=== PATIENT | female | born 1995 | race Caucasian/White ===

== ENCOUNTER 2023-06-21 09:46 | Outpatient (REF) | payer MEDICAID, SELFPAY ==
[2023-06-21 14:49] LABS: MANUAL DIFF FLAG NO
[2023-06-21 14:56] LABS: Basophils Percent Auto 0.6 % (0-2); Eosinophils Percent Auto 0.4 % (0-4); Hematocrit 39.4 % (37.0-47.0); Hemoglobin 12.5 g/dl (12.0-16.0); Imm Gran Abs Auto 0.01 X10*3/uL (0.00-0.03); Imm Gran Pct Auto 0.2 % (0.0-0.4); Lymphocytes Absolute Auto 1.2 X10*3/uL (1.2-4.9); Lymphocytes Percent Auto 24.2 % (20-40); Mean Corpuscular HGB Conc 31.7 g/dl (31.0-35.0); Mean Corpuscular Volume 88.3 fL (80.0-98.0); Mean Platelet Volume 12.7 fL (9.4-12.3); Monocytes Absolute Auto 0.3 X10*3/uL (0.1-1.2); Monocytes Percent Auto 5.4 % (2-11); Neutrophils Absolute Auto 3.4 x10*3/uL (2.0-8.3); Neutrophils Percent Auto 69.2 % (45-73); Platelet Count 134 X10*3/uL (160-400); Red Blood Count 4.46 X10*6/uL (4.20-5.50); Red Cell Distribution Width 16.5 % (11.0-16.0); White Blood Count 4.8 X10*3/uL (4.8-10.8)
[2023-06-21 15:19] LABS: Alanine Aminotransferase 10 U/L (0-31); Albumin Level 4.2 g/dL (3.5-5.0); Alkaline Phosphatase 49 U/L (39-117); Anion Gap 10 (12-20); Aspartate Amino Transferase 17 U/L (5-31); Bilirubin Total 0.8 mg/dL (0.0-1.0); Blood Urea Nitrogen 14 mg/dL (9-16); Calcium 9.2 mg/dL (8.4-10.2); Carbon Dioxide 28 mmol/L (22-29); Chloride 106 mmol/L (96-108); Estimated Glomerular Filt Rate > 60; Glucose Random 64 mg/dL (60-115); Potassium 3.3 mmol/L (3.3-5.1); Sodium 141 mmol/L (135-145); Total Protein 7.1 g/dL (6.5-8.0)
[2023-06-22 04:11] LABS: HIV AB/AG Nonreactive (Nonreactive); HIV Num 1 0.06 S/CO (0.00-0.99)
== END 2023-06-21 09:47 | disposition home or self-care (01) ==
LOC: HO.CHCLDS 09:46
PROVIDERS: Visit Provider Internal Medicine
DX: Z00.00 Encounter for general adult medical examination without abnormal findings (principal); D69.6 Thrombocytopenia, unspecified
CPT/HCPCS: 36415; 80053; 85025; 87389

== ENCOUNTER 2023-06-24 16:15 | Outpatient (REF) | payer MEDICAID, SELFPAY ==
[2023-06-24 18:27] LABS: Appearance Urine Cloudy; Color Urine Yellow; Glucose Urine UA Negative (Negative); Leukocyte Esterase Urine Trace (Negative); Nitrite Urine Negative (Negative); Specific Gravity - Urine 1.025 (1.005-1.025); UMIC TRIGGER UA YES; Urine Blood Trace (Negative); Urine Ketones Negative (Negative); Urine Protein Negative (Neg-Trace)
[2023-06-24 18:29] LABS: Bacteria Urine 2+ (None Seen); Hyaline Casts Urine 0-2 /LPF (0-2); RBC Urine 0-2 /HPF (0-2)
== END 2023-06-24 16:16 | disposition home or self-care (01) ==
LOC: HO.CHCLNP 16:15
PROVIDERS: Visit Provider Registered Nurse
DX: R39.9 Unspecified symptoms and signs involving the genitourinary system (principal)
CPT/HCPCS: 81001; 87086

== ENCOUNTER 2024-09-03 13:52 | Outpatient (REF) | payer MEDICAID, SELFPAY ==
--- OUTSIDE RECORDS SUMMARY | 2024-09-03 15:21 | XMS_ITS | Clinical Summary ---
Author Organization [facility] ity Address [address] [place] [address] Care Team Providers Care Oracle Database Consultant Name Role Phone Unavailable Primary Care Provider Unavailabl e Social History Tobacco Use Types Packs/Day Years Used Date Smoking Tobacco: Never Assessed Comments Unknown Sex and Gender Information Value Date Recorded Sex Assigned at Not on file Legal Sex Female 12:16 PM EST Gender Identity Not on file Sexual Orientation Not on file Plan of Treatment Health Maintenance Due Date Last Done Comments DTaP,Tdap,and Td Vaccines (1 - Tdap) 02/28/2015 Hepatitis B Vaccines (1 of 3 - 19+ 3-dose series) 02/28/2015 Cervical Cancer Screening: P ap Smear 02/28/2017 Depression Screening 05/01/2022 HIV Screening 05/01/2022 Hepatitis C Screening 05/01/2022 Social Influencers of Health Screening 05/01/2022 COVID-19 Vaccine (2023-2 5 season) 2024 Influenza Vaccine (Season Ended) 2025 HIB Vaccines Aged Out No longer eligi ble based on patient's age to complete this topic HPV Vaccines Aged Out No longer eligi ble based on patient's age to complete this topic Hepatitis A Vaccines Aged Out No long er eligible based on patient's age to complete this topic IPV Vaccines Aged Out No longer eligi ble based on patient's age to complete this topic MMR Vaccines Aged Out No longer eligi ble based on patient's age to complete this topic Meningococcal ACWY Vaccine Aged Out N o longer eligible based on patient's age to complete this topic Meningococcal B Vacine Aged Out No lo nger eligible based on patient's age to complete this topic Pneumococcal Vaccine: Pediat rics (0 to 5 Years) and At-Risk Patients (6 to 64 Years) Aged Out No longer eligible b ased on patient's age to complete this topic RSV Immunization Patients Un amber 20 months Aged Out No longer eligible b ased on patient's age to complete this topic Varicella Vaccines Aged Out No longer eligible based on patient's age to complete this topic
--- OUTSIDE RECORDS SUMMARY | 2024-09-03 15:21 | XMS_ITS | Encounter Summary ---
Author Organization [facility] Address [address] [facility] 7 [place] [address] Care Team Providers Care Coal Crusher Operator Name Role Phone Naty Velazquez MD Primary Care Provider [phone] Encounter Details Date Type Department Care Team (Late st Contact Info) Description 09/03/2024 1:15 PM EDT Office Visit [facility] MED & PEDS [address] [place], [place] [phone] Naty Velazquez MD [address] [place] [address] Annual physical exam (Primary Dx); Other iron deficiency anemia; Dietary counseling; Exercise counseling; Underweight Social History Tobacco Use Types Packs/Day Years Used Date Smoking Tobacco: Never Passive Smoke Exposure: Never Smokeless Tobacco: Never Alcohol Use Standard Drinks/Week Comments Defer 0 (1 standard drink = 0.6 oz pur e alcohol) Alcohol Answer Date Recorded Q1: How often do you have a drink containing alc ohol? 2 09/03/2024 Q2: How many drinks containi ng alcohol do you have on a typical day when you are drinking? 0 09/03/2024 Q3: How often do you have six or more drinks on one occasion? 2 09/03/2024 Depression Answer Date Recorded Patient Health Questionnaire-9 Score 10 09/03/2024 Patient Health Questionnaire-9 Score 10 09/03/2024 Last PHQ-9: Questionnaire Data Not on file 0 09/03/2024 Housing Stability Answer Date Recorded What is your housing situation today? I have [facility] [employer] 04/08/[address] you li ve. Do you have problems with any of the following? None of the above 04/08/2023 Food Insecurity Answer Date Recorded Within the past 12 months, y ou worried that your food would run out before you got money to buy more: Never True 04/08/2023 Within the past 12 months,th e food you bought just didn't last and you didn't have enough money to get more: Never True 11/2022 Transportation Answer Date Recorded In the past 12 months, has l ack of transportation kept you from medical appts, meetings, work or from getting things needed for daily living? No 04/08/2023 Utilities Answer Date Recorded In the past 12 months, has t he electric, gas, oil or water company threatened to shut off services in your home? No 04/08/2023 Depression Answer Date Recorded Patient Health Questionnaire-2 Score 0 09/03/2024 Comments Unknown Sex and Gender Information Value Date Recorded Sex Assigned at Female 04/02/2022 10:39 AM EDT Legal Sex Female 10:39 AM EDT Gender Identity Female 04/02/2022 10:39 AM EDT Sexual Orientation Straight 04/02/2022 10 :39 AM EDT documented as of this encounter Last Filed Vital Signs Vital Sign Reading Time Taken Comments Blood Pressure 106/69 09/03/2024 1:32 PM EDT Pulse 78 09/03/2024 1:32 PM EDT Temperature 36.3 ??C (97.4 ??F) 09/03/2024 1:32 PM ED T Respiratory Rate 20 09/03/2024 1:32 PM EDT Oxygen Saturation 98% 09/03/2024 1:32 PM EDT Inhaled Oxygen Concentration - - Weight 44.9 kg (99 lb) 09/03/2024 1:32 PM EDT Height 165.1 cm (5' 5 ) 09/03/2024 1:32 PM EDT Body Mass Index 16.47 09/03/2024 1:32 PM EDT documented in this encounter Progress Notes * Naty Velazquez MD - 09/03/2024 1:15 PM EDT Subjective Patient ID: Beckie Burnette is a 29 y.o. female who presents for No chief complaint on file.. HPI Patient is here for her annual physical exam. Patient is asymptomatic. Patient Active Problem List Diagnosis Iron deficiency anemia Allergic reaction Current Outpatient Medications on File Prior to Visit Medication Sig Dispense Refill ferrous gluconate (Fergon) 324 (38 Fe) MG tablet TAKE 1 TABLET BY MOUTH WITH BREAKFAST (Patient nottaking: Reported on 08/20/2024) 90 tablet 0 omeprazole (PriLOSEC) [address] capsule Take 1 capsule (20 mg) by mouth before breakfast. 90 capsule3 No current facility-administered medications on file prior to visit. No Known Allergies Review of Systems Constitutional: Negative for activity change, appetite change, chills and diaphoresis. HENT: Negative for dental problem, drooling, ear discharge, ear pain and hearing loss. Eyes: Negative for pain, discharge and itching. Respiratory: Negative for cough, choking and chest tightness. Cardiovascular: Negative for chest pain and leg swelling. Gastrointestinal: Negative for blood in stool and diarrhea. Genitourinary: Negative for difficulty urinating, dyspareunia, dysuria, enuresis, flank pain, frequency and genital sores. Musculoskeletal: Negative for arthralgias, gait problem and joint swelling. Skin: Negative for pallor. Neurological: Negative for dizziness, seizures, speech difficulty, light- headedness and numbness. Psychiatric/Behavioral: Negative for behavioral problems, confusion and decreased concentration. Objective BP 106/69 (BP Location: Right arm, Patient Position: Sitting, BP Cuff Size: Adult) Pulse 78 Temp 97.4 ??F (36.3 ??C) (Oral) Resp 20 Ht 5' 5 (1.651 m) Wt 99 lb (44.9 kg) SpO2 98% BMI 16.47 kg/m?? Physical Exam Constitutional: General: She is not in acute distress. Appearance: Normal appearance. She is not ill-appearing, toxic-appearing or diaphoretic. HENT: Head: Normocephalic. Right Ear: Tympanic membrane normal. There is no impacted cerumen. Left Ear: Tympanic membrane normal. There is no impacted cerumen. Nose: Nose normal. No congestion or rhinorrhea. Mouth/Throat: Mouth: Mucous membranes are moist. Eyes: General: No scleral icterus. Right eye: No discharge. Left eye: No discharge. Pupils: Pupils are equal, round, and reactive to light. Cardiovascular: Rate and Rhythm: Normal rate and regular rhythm. Heart sounds: No murmur heard. No friction rub. No gallop. Pulmonary: Effort: Pulmonary effort is normal. No respiratory distress. Breath sounds: No stridor. No wheezing, rhonchi or rales. Chest: Chest wall: No tenderness. Abdominal: General: There is no distension. Palpations: Abdomen is soft. There is no mass. Tenderness: There is no abdominal tenderness. There is no right CVA tenderness or left CVA tenderness. Musculoskeletal: General: Normal range of motion. Cervical back: Normal range of motion. Neurological: General: No focal deficit present. Mental Status: She is alert and oriented to person, place, and time. Psychiatric: Mood and Affect: Mood normal. Assessment/Plan Diagnoses and all orders for this visit: Annual physical exam Comments: Patient is to maintain a healthy and balanced diet Normal cardiopulmonary exam Orders: - CBC auto differential; Future - Comprehensive Metabolic Panel; Future - TSH W/Reflex to FT4; Future - Hepatitis C Antibody with Reflex to HCV, RNA, Quantitative, Real-Time PCR; Future - HIV-1/2 Antigen and Antibodies, Fourth Generation, with Reflexes; Future Other iron deficiency anemia Comments: Labs ordered Patient will be contacted with results Dietary counseling Exercise counseling Underweight Comments: Pt's weight has been stable in the last 2 years. advised to increase her calorie intake To contact the office if needed documented in this encounter Plan of Treatment Upcoming Encounters Date Type Department Care Team (Late st Contact Info) Description 09/09/2024 10:00 AM EDT Office Visit [facility] ADULT DENTAL [address] [place] [address] Sheri Blue DMD 11/18/2024 3:00 PM EDT Office Visit [facility] AD[facility] [address] [place] [address] Susy Aldana Scheduled Orders Name Type Priority Associated Diagnoses Orde r Schedule CBC auto differential Lab Routine Annual physical exam Expected: 09/03/2024 (Approximate), Expires: 09/03/2025 Comprehensive Metabolic Panel Lab Routine Annual physical exam Expected: 09/03/2024 (Approximate), Expires: 09/03/2025 TSH W/Reflex to FT4 Lab Routine Annual physical exam Expected: 09/03/2024 (Approximate), Expires: 09/03/2025 Hepatitis C Antibody with Reflex to HCV, RNA, Quantitative, Real-Time PCR Lab Routine Annual physical exam Expected: 09/03/2024, Expires: 09/03/2025 HIV-1/2 Antigen and Antibodies, Fourth Generation, with Reflexes Lab Routine Annual physical exam Expected: 09/03/2024 (Approximate), Expires: 09/03/2025 documented as of this encounter Visit Diagnoses Diagnosis Annual physical exam- Primary Routine general medical examination at a health care facility Other iron deficiency anemia Dietary counseling Dietary surveillance and counseling Exercise counseling Underweight documented in this encounter Additional Health Concerns Assessment Noted Time PHQ-9 Depression Total Score: 10 025 1:48 PM EDT documented as of this encounter Care Teams Coal Crusher Operator Relationship Specialty Start Date End Date Naty Velazquez MD [address] [place] [address] PCP - General Internal Medicine 01/05/21 documented as of this encounter
--- OUTSIDE RECORDS SUMMARY | 2024-09-03 15:21 | XMS_ITS | Encounter Summary ---
Author Organization [facility] Address [address] [place] [address] 7 [place] [address] Care Team Providers Care Stars Analytical Lead Name Role Phone Naty Velazquez MD Primary Care Provider [phone] Reason for Referral * Cardiac Stress Testing (Routine) - Closed Specialty Diagnoses / Procedures Referred By Contac t Referred To Contact Cardiology Diagnoses Syncope, unspecified syncope type Procedures Holter monitor - 24 hour Naty Velazquez MD [address] [place] [address] Phone: tel: fax: [address] Phone: tel: fax: Referral ID Status Reason Start Date Expiration Date Visits Re quested Visits Authorized [id number] Closed 08/15/2023 08/14/2024 1 1 * Cardiac Stress Testing (Routine) - Closed Specialty Diagnoses / Procedures Referred By Contac t Referred To Contact Cardiology Diagnoses Syncope, unspecified syncope type Procedures Holter monitor - 48 hour Naty Velazquez MD [address] [place] [address] Phone: tel: fax: Referral ID Status Reason Start Date Expiration Date Visits Re quested Visits Authorized [id number] Closed 08/09/2023 08/08/2024 1 1 Encounter Details Date Type Department Care Team ([facility] Contact Info) Description 08/09/2023 Orders Only [facility] MED [facility] PEDS [address] [place] [address] Naty Velazquez MD [address] [place] [address] Syncope, unspecified syncope type (Primary Dx) Social History Tobacco Use Types Packs/Day Years Used Date Smoking Tobacco: Never Smokeless Tobacco: Never Depression Answer Date Recorded Patient Health Questionnaire-9 Score 4 05/17/2022 Housing Stability Answer Date Recorded What is [...] Date Recorded Patient Health Questionnaire-2 Score 0 05/17/2022 Comments Unknown Sex and Gender Information Value Date Recorded Sex Assigned at Female 04/02/2022 10:39 AM EDT Legal Sex Female 10:39 AM EDT Gender Identity Female 04/02/2022 10:39 AM EDT Sexual Orientation Straight 04/02/2022 10 :39 AM EDT documented as of this encounter Plan of Treatment Upcoming Encounters Date Type Department Care Team ([facility] Contact Info) Description 09/09/2024 10:00 AM EDT Office Visit [facility] AD[facility] [address] [place] [address] Sheri Blue DMD 11/18/2024 3:00 PM EDT Office Visit [facility] [address] [place] [address] Susy Aldana Scheduled Orders Name Type Priority Associated Diagnoses Orde r Schedule Holter monitor - 48 hour Cardiac Services Routine Syncope, unspecified syncope type Expected: 08/09/2023 (Approximate), Expires: 08/08/2025 Holter monitor - 24 hour Cardiac Services Routine Syncope, unspecified syncope type Expected: 08/15/2023 (Approximate), Expires: 08/14/2025 documented as of this encounter Visit Diagnoses Diagnosis Syncope, unspecified syncope type- Primary documented in this encounter Additional Health Concerns Assessment Noted Time PHQ-9 Depression Total Score: 4 05/17/20 22 9:42 AM EST documented as of this encounter Care Teams Stars Analytical Lead Relationship Specialty Start Date End Date Naty Velazquez MD [address] [place] [address] PCP - General Internal Medicine 01/05/21 documented as of this encounter
--- OUTSIDE RECORDS SUMMARY | 2024-09-03 15:21 | XMS_ITS | Encounter Summary ---
Author Organization [facility] [facility] Address [address] [facility] [address] [place] [address] Care Team Providers Care Dining Car Server Name Role Phone Naty Velazquez MD Primary Care Provider [phone] Encounter Details Date Type Department Care Team (Late st Contact Info) Description 06/21/2023 Orders Only [facility] [address] [place], [place] [phone] Naty Velazquez MD [address] [place], [place] [phone] Low platelet count (CMS/HCC) (Primary Dx) Social History Tobacco Use Types [...] Description 09/09/2024 10:00 AM EDT Office Visit [facility] ADULT DENT[facility] [address] [place] [address] Sheri Blue DMD 11/18/2024 3:00 PM EDT Office Visit [facility] ADULT D[facility] [address] [place] [address] Susy Aldana Scheduled Orders Name Type Priority Associated Diagnoses Orde r Schedule CBC auto differential Lab Routine Low platelet count (CMS/HCC) Expected: 06/21/2023 (Approximate), Expires: 06/21/2024 documented as of this encounter Procedures Procedure Name Priority Date/Time Associated Diagnosis Comments CULTURE, URINE, ROUTINE Routine 06/24/2023 2:42 PM EST Low platelet count (CMS/HCC) URINALYSIS, COMPLETE Routine 06/24/2023 2:41 PM EST Low platelet count (CMS/HCC) documented in this encounter Results * Culture, Urine, Routine (06/24/2023 2:42 PM EST) Urine Urine specimen obtained by clean catch procedure / Unknown 06/24/2023 2:42 PM EST 06/24/2023 5:45 PM EST Comment:[facility] Narrative [facility] - 06/26/2023 11:45 AM EST Urine Culture Report Result Urine Culture < 10,000 cfu/ml Specimen Source: Urine clean catch us Shanell Ac [facility] MICROBIOLOGY - GENERAL ORD ERABLES Final Result [facility] [address] [place] [phone] * (ABNORMAL) Urinalysis Complete (06/24/2023 2:41 PM EST) Color Urine Yellow [facility] Appearance Urine Cloudy [facility] PH 6.0 5.0 - 9.0 [facility] Glucose Urine UA Negative Negative mg/dL [facility] Urine Blood Trace(A) Negative [facility] Specific [place] - Urine 1.025 1.005 - 1.025 [facility] Urine Protein Negative Neg-Trace mg/dL [facility] Urine Ketones Negative Negative mg/dL [facility] Nitrite Urine Negative Negative [facility] Leukocyte Esterase Urine Trace(A) Negative [facility] RBC Urine 0-2 0 - 2 /HPF [facility] Urine WBC 11-20(A) 0 - 5 /HPF [facility] Urine Squamous Epithelial Cell 11-20 0 - 2 /HPF [facility] Urine Bacteria 2+ None Seen [facility] Hyaline Casts, Urine 0-2 0 - 2 /LPF [facility] 06/24/2023 2:41 PM EST 06/24/2023 6:18 PM EST us Shanell Ac [facility] URINE ORDERABLES Final Res ult [facility] [address] [place] [phone] [phone] documented in this encounter Visit Diagnoses Diagnosis Low platelet count (CMS/HCC)- Primary documented in this encounter Additional Health Concerns Assessment Noted Time PHQ-9 Depression Total Score: 4 05/17/20 22 9:42 AM EST documented as of this encounter Care Teams Dining Car Server Relationship Specialty Start Date End Date Naty Velazquez MD [address] [place] [address] PCP - General Internal Medicine 01/05/21 documented as of this encounter
--- OUTSIDE RECORDS SUMMARY | 2024-09-03 15:21 | XMS_ITS | Clinical Summary ---
Author Organization [employer] Address [address] [facility] [address] [place] [address] Care Team Providers Care Off Track Betting Manager Name Role Phone Naty Velazquez MD Primary Care Provider [phone] Allergies No known active allergies Medications omeprazole (PriLOSEC) [address] richIndyary ns:Gastroesophag eal reflux disease without esophagitis Take 1 capsule (20 mg) by mouth before breakfast. 90 capsule 3 3 Active ferrous gluconate (Fergon) 324 (38 Fe) MG tabletIndication s:Other iron deficiency anemia TAKE 1 TABLET BY MOUTH WITH BREAKFAST 90 tablet 4 Active Additional Information Patient not taking.Reported on 08/20/2024 Active Problems Problem Noted Date Diagnosed Date Allergic reaction 09/20/2022 Assessment & Plan (09/20/2022 10:01 AM EDT): Patient was installing a plastic fence on her yard on 09/16, next morning she woke up with a rash all over her body, without associated shortness of breath, sore throat, fever. Denied new medication/change in soaps, new food. Patient has been taking benadryl with minimal improvement, will provide prednisone x5 days, continue benadryl, in case of worsening or new symptoms as discussed told to visit er Iron deficiency anemia 04/18/2021 Encounters Date Type Department Care Team Description 09/03/2024 1:15 PM EDT Office Visit [facility] [address] [place] [address] Naty Velazquez MD Annual physical exam (Primary Dx); Other iron deficiency anemia; Dietary counseling; Exercise counseling; Underweight 09/03/2024 Travel 08/26/2024 Patient Outreach [facility] [address] [place] [address] Naty Velazquez MD Pre-visit Planning (Pre visit planning LVM ) 08/20/2024 1:00 PM EDT Office Visit [facility] [address] [place] [address] Sheri Blue DMD 08/14/2024 Population Health Risk Score Community Care [facility] ([facility]) Department [address] [place] [address] [phone] Provider, Population Health Generic 07/28/2024 1:00 PM EST Office Visit [facility] [address] [place] [address] Sheri Blue DMD 07/01/2024 1:00 PM EST Office Visit [facility] [address] [place] [address] Sheri Blue DMD 06/16/2024 9:00 AM EST Office Visit [facility] [address] [place] [address] Sheri Blue DMD from Last 3 Months Immunizations Name Administration Dates Next Due Influenza injectable quadriv alent preservative free 04/17/2023 Influenza, seasonal, injecta ble, preservative free 05/17/2022 Pfizer Covid-19 Vaccine 12+ 06/20/2021,,10/15/2020 TD (adult), 2 Lf tetanus tox oid, preservative free, adsorbed 06/20/2023 Social History Tobacco Use Types Packs/Day Years Used Date Smoking Tobacco: Never Passive Smoke Exposure: Never Smokeless Tobacco: Never Tobacco Cessation:Counseling Given: Not Answered Alcohol Use Standard Drinks/Week Comments Defer 0 [...] Orientation Straight 04/02/2022 10 :39 AM EDT Last Filed Vital Signs Vital Sign Reading [...] Mass Index 16.47 09/03/2024 1:32 PM EDT Plan of Treatment Upcoming Encounters Date Type Department Care Team (Late st Contact Info) Description 09/09/2024 10:00 AM EDT Office Visit [facility] [address] [place] [address] Sheri Blue DMD 11/18/2024 3:00 PM EDT Office Visit [facility] [address] [place] [address] Susy Aldana Health Maintenance Due Date Last Done Comments Family Planning (PISQ) 02/28/2011 Hepatitis C Screening 02/28/2014 Hepatitis B Vaccines (1 of 3 - 19+ 3-dose series) 02/28/2015 DTaP/Tdap/Td Vaccines (1 - Tdap) 06/21/2023 06/20/2023 COVID-19 Vaccine (4 - 2023-2 5 season) 2024 06/20/2021, 11/09/2020, 10/15/2020 Influenza Vaccine (#1) 2024 , 05/17/2022 SDOH Screening 06/11/2024 06/11/2023 Pap Smear 07/04/2024 07/04/2021 Dental Oral Exam 11/13/2024 05/14/2024 Dental Prophylaxis 11/13/2024 05/14/2024 Depression Monitoring (PHQ-9) 03/05/2025, 09/03/2024 Dental X-Ray: Bitewings 08/21/2025 08/21/19 25, 05/14/2024 Alcohol/Substance Use Screening 09/03/2025 09/03/2024 Depression Screening 09/03/2025 09/03/2024, 09/03/2024 Tobacco Screening 09/03/2025 09/03/2024 Dental X-Ray: Full Mouth 05/15/2027 05/14/2024 Zoster Vaccines (1 of 2) 02/28/2046 RSV Patients and Patients Aged 60 years or older (1 - 1-dose 75+ series) 02/28/2071 HIV Screening Completed 06/21/2023 HIB Vaccines Aged Out No longer eligi [...] patient's age to complete this topic Meningococcal Vaccine Aged Out No rhina shelby eligible based on patient's age to complete this topic Pneumococcal Vaccine: Pediatrics (0 to 5 Years) and At-Risk Patients (6 to 49) Years) Aged Out No longer eligible b ased on patient's age to complete this topic RSV under 20 months Aged Out No longe r eligible based on patient's age to complete this topic Rotavirus Vaccines Aged Out No longer eligible based on patient's age to complete this topic Procedures Procedure Name Priority Date/Time Associated Diagnosis Comments BITEWING - SINGLE RADIOGRAPHIC IMAGE Routine 08/20/2024 1:00 PM EDT CASE PRESENTATION, DETAILED AND EXTENSIVE TREATMENT PLANNING Routine 08/20/2024 1:00 PM EDT NO CHARGE - REDO PROCEDURE Routine 08/20/2024 1:00 PM EDT 20 O RESIN-BASED COMPOSITE - 1 SURF, POSTERIOR Routine 08/20/2024 1:00 PM EDT CASE PRESENTATION, DETAILED AND EXTENSIVE TREATMENT PLANNING Routine 07/28/2024 1:00 PM EST 31 MO RESIN-BASED COMPOSITE - 2 SURF, POSTERIOR Routine 07/28/2024 1:00 PM EST 28 DO RESIN-BASED COMPOSITE - 2 SURF, POSTERIOR Routine 07/28/2024 1:00 PM EST CASE PRESENTATION, DETAILED AND EXTENSIVE TREATMENT PLANNING Routine 07/01/2024 1:00 PM EST 29 MOD RESIN-BASED COMPOSITE - 3 SURF, POSTERIOR Routine 07/01/2024 1:00 PM EST CASE PRESENTATION, DETAILED AND EXTENSIVE TREATMENT PLANNING Routine 06/16/2024 9:00 AM EST 12 DO RESIN-BASED COMPOSITE - 2 SURF, POSTERIOR Routine 06/16/2024 9:00 AM EST PROPHYLAXIS - ADULT Routine 05/14/2024 1 1:00 AM EST INTRAORAL - COMPLETE SERIES OF RADIOGRAPHIC IMAGES Routine 05/14/2024 11:00 AM EST COMPREHENSIVE ORAL EVALUATION - NEW OR ESTABLISHED PATIENT Routine 05/14/2024 11:00 AM EST HIV 1/2 ANTIGEN/ANTIBODY, FOURTH GENERATION W/RFL Routine 06/21/2023 9:53 AM EST Annual physical exam HM PAP/HPV Routine 07/04/2021 from Last 3 Months or Most Recently Relevant to Health Maintenance Results * HIV-1/2 Antigen and Antibodies, Fourth Generation, with Reflexes (06/21/2023 9:53 AM EST) HIV AB/AG Nonreactive Nonreactive [facility] Comment:HIV-1 p24 Ag and/or HIV-1/HIV-2 Ab not detected.A test result that is nonreactive does not exclude thepossibility of exposure to or infection with HIV-1 and/orHIV-2. Nonreactive results in this assay for individualswith prior exposure to HIV-1 and/or HIV-2 may be due toantigen and antibody levels that are below the limit ofdetection of this assay.The Videoflow HIV Ag/Ab Combo assay result andsupplemental assay results should be interpreted inconjunction with the patient's clinical presentation,history and other laboratory results. If the results areinconsistent with clinical evidence, additional testing issuggested to confirm the result. Blood Venous blood specimen / Unknown 06/21/2023 9:53 AM EST 06/21/2023 2:45 PM EST us Naty Velazquez MD LAB BLOOD ORDERABLES Final Result [facility] [address] [place] [address] [phone] * Hm Pap Smear (07/04/2021) Pap Negative for intraephithelial lesion or malignancy Negative for intraephithelial lesion or malignancy, Other us Historical Provider HEALTH MAINTENANCE Final Result from Last 3 Months or Most Recently Relevant to Health Maintenance Insurance [employer] [facility] [employer] [place] AD[place] Care Teams Off Track Betting Manager Relationship Specialty Start Date End Date Naty Velazquez MD [address] [place] [id number] PCP - General Internal Medicine 01/05/21
--- OUTSIDE RECORDS SUMMARY | 2024-09-03 15:21 | XMS_ITS | Encounter Summary ---
Author Organization [employer] Address [address] [facility] [address] [place] [address] Care Team Providers Care Passenger Rate Clerk Name Role Phone Naty Velazquez MD Primary Care Provider [phone] Encounter Details Date Type Department Care Team (Latest Contact Info) Description 09/03/2024 Travel Social History Tobacco Use Types Packs/Day Years [...] is your housing situation today? I have terrancecharity de los santos 04/08/2023 Think about the [...] Description 09/09/2024 10:00 AM EDT Office Visit [facility] [address] [place] [address] Sheri Blue DMD 11/18/2024 3:00 PM EDT Office Visit [facility] [address] [place] [address] Susy Aldana documented as of this encounter Visit Diagnoses Not on filedocumented in this encounter Additional Health Concerns Assessment Noted Time PHQ-9 Depression Total Score: 10 025 1:48 PM EDT documented as of this encounter Care Teams Passenger Rate Clerk Relationship Specialty Start Date End Date Naty Velazquez MD [address] [place] [address] PCP - General Internal Medicine 01/05/21 documented as of this encounter
[2024-09-03 17:36] LABS: MANUAL DIFF FLAG NO
[2024-09-03 17:57] LABS: Anion Gap 12 (12-20)
[2024-09-03 18:00] LABS: Alanine Aminotransferase 10 U/L (0-31); Albumin Level 4.2 g/dL (3.5-5.0); Alkaline Phosphatase 56 U/L (39-117); Aspartate Amino Transferase 26 U/L (5-31); Bilirubin Total 1.2 mg/dL (0.0-1.0); Blood Urea Nitrogen 14 mg/dL (9-16); Calcium 9.2 mg/dL (8.4-10.2); Carbon Dioxide 24 mmol/L (22-29); Chloride 106 mmol/L (96-108); Estimated Glomerular Filt Rate > 60; Glucose Random 75 mg/dL (60-115); Potassium 3.7 mmol/L (3.3-5.1); Sodium 138 mmol/L (135-145); Total Protein 6.8 g/dL (6.5-8.0)
[2024-09-03 18:21] LABS: Basophils Percent Auto 0.6 % (0-2); Eosinophils Percent Auto 0.2 % (0-4); Hematocrit 35.9 % (37.0-47.0); Hemoglobin 11.4 g/dl (12.0-16.0); Imm Gran Abs Auto 0.02 X10*3/uL (0.00-0.03); Imm Gran Pct Auto 0.4 % (0.0-0.4); Lymphocytes Absolute Auto 1.3 X10*3/uL (1.2-4.9); Mean Corpuscular HGB Conc 31.8 g/dl (31.0-35.0); Mean Corpuscular Hemoglobin 26.7 pg (27.0-33.0); Mean Corpuscular Volume 84.1 fL (80.0-98.0); Monocytes Absolute Auto 0.3 X10*3/uL (0.1-1.2); Monocytes Percent Auto 5.6 % (2-11); Neutrophils Percent Auto 65.2 % (45-73); Platelet Count 142 X10*3/uL (160-400); Red Blood Count 4.27 X10*6/uL (4.20-5.50); Red Cell Distribution Width 15.3 % (11.0-16.0); White Blood Count 4.7 X10*3/uL (4.8-10.8)
[2024-09-03 18:34] LABS: TSH reflex Free T4 0.99 uIU/mL (0.32-4.0)
[2024-09-04 08:11] LABS: HIV AB/AG Nonreactive (Nonreactive); HIV Num 1 0.07 S/CO (0.00-0.99); ~HepC Num1 0.21 S/CO (0.00-0.79); ~Hepatitis C Antibody Nonreactive (Nonreactive)
== END 2024-09-03 13:53 | disposition home or self-care (01) ==
LOC: HO.CHCLDS 13:52
PROVIDERS: Visit Provider Internal Medicine
DX: Z00.00 Encounter for general adult medical examination without abnormal findings (principal)
CPT/HCPCS: 36415; 80053; 84443; 85025; 86803; 87389